=== PATIENT | male | born 1970 | race Asian ===

== ENCOUNTER 2019-08-24 04:49 | Emergency (ER) | payer BC ==
[~2019-08-24] VITALS: Ht 190.5 cm; Wt 136.1 kg
[2019-08-24 04:55] VITALS: BP_SYST 125
--- NOTE | 2019-08-24 04:55 | NUR ---
Patient to ER bed 8 to gown for evaluation. Side rails up. Report given to Dhara VELIZ.
--- NOTE | 2019-08-24 05:00 | NUR ---
Patient brought in complaining of dry cough x 3 days with headache. Denies any SOB, fever, nausea, vomiting or diarrhea. Pain 5/10. No other complaints/injuries per patient or as noted. Will continue to monitor.
--- NOTE | 2019-08-24 05:07 | NUR ---
ER Dr. Sutherland at bedside examining patient.
[2019-08-24] MEDS ORDERED: IPRATROPIUM/ALBUTEROL SULFATE 3 ML AMPUL.NEB (DUONEB) INH ONE (05:15)
--- NOTE | 2019-08-24 05:32 | NUR ---
EKG performed at by KEREN Ramírez. Physician given copy of EKG for review.
--- NOTE | 2019-08-24 05:43 | NUR ---
PAtient off unit to radiology for chest xray
[2019-08-24 06:01] VITALS: BP_SYST 125
--- NOTE | 2019-08-24 06:01 | NUR ---
Patient given written and verbal discharge instructions and verbalizes understanding. ER MD discussed with patient the results and treatment provided. Patient in stable condition. ID arm band removed. Rx of Tessalon perles and Albuterol given. Patient educated on pain management and to follow up with PMD in 2-3 days. Pain Scale 0/10 Opportunity for questions provided and answered. Medication side effect fact sheet provided.
== END 2019-08-24 06:01 | disposition home or self-care (01) ==
LOC: SED 04:49
DX: J20.9 Acute bronchitis, unspecified (principal)
CPT/HCPCS: 71046; 93005; 94640; 99283; J7620

== ENCOUNTER 2022-10-13 02:30 | Emergency (ER) | payer BC ==
[~2022-10-13] VITALS: Ht 190.5 cm; Wt 133.8 kg
[2022-10-13 02:37] VITALS: BP_SYST 153
--- NOTE | 2022-10-13 02:37 | NUR ---
Patient came in to the ER presents with right 3rd digit pain and swelling. Patient reports smashed finger last Monday and condition gotten worse. Patient afebrile, no other remarkable symptoms noted. Patient AAO x 4, in stable condition, ambulatory with steady gait.
--- NOTE | 2022-10-13 02:40 | NUR ---
Patient triaged and placed in waiting room. VS checked and patient appears in no acute distress at this time. Accompanied by family, awaiting available bed, and MD notified of need for MSE.
[2022-10-13] MEDS ORDERED: SIMV40TA2 PO (02:45)
--- NOTE | 2022-10-13 02:52 | NUR ---
ER Dr. Hancock in triage examining patient.
[2022-10-13] MEDS ORDERED: LIDOCAINE 1% 10 MG/ML, 20 ML MDV INJ ONE (03:00)
--- NOTE | 2022-10-13 03:20 | NUR ---
I and D done by Dr Hancock in triage.
[2022-10-13 03:45] VITALS: BP_SYST 148
--- NOTE | 2022-10-13 03:45 | NUR ---
Patient given written and verbal discharge instructions and verbalizes understanding. ER MD discussed with patient the treatment provided. Patient in stable condition. No Rx given. Patient educated on pain management and to follow up with PMD.Opportunity for questions provided and answered.
== END 2022-10-13 03:45 | disposition home or self-care (01) ==
LOC: SED 02:30
DX: L03.011 Cellulitis of right finger (principal); Z79.899 Other long term (current) drug therapy
CPT/HCPCS: 99283; 26010; 73140; J2001